=== PATIENT | female | born 1970 | race Caucasian/White ===

== ENCOUNTER → 2017-10-29 07:42 | Outpatient (CLI) | payer BC | END | disposition home or self-care (01) | LOC: D.MRI 07:42 | DX: G35 Multiple sclerosis (principal) ==

== ENCOUNTER 2020-04-11 07:05 | Observation (INO) | payer BC ==
[2020-04-08 17:17] LABS: BASOPHILS 0.3 % (0-2); HEMATOCRIT 44.9 % (36.0-48.0); IMMATURE GRANULOCYTES 0.1 % (0-5); LYMPHOCYTE ABS# 2.49 10x3/uL (1.18-3.74); LYMPHOCYTES 35.5 % (15-50); MCH 30.4 pg (26.0-34.0); MCHC 33.4 g/dL (31.0-37.0); MCV 91.1 fL (80.0-100.0); MONOCYTES 5.8 % (2-11); NEUTROPHIL ABS# 3.81 10x3/uL (1.56-6.13); NEUTROPHILS 54.3 % (40-80); PLATELET COUNT 233 10x3/uL (130-400); RBC 4.93 10x6/uL (4.00-5.40); RDW 12.6 % (11.5-14.5)
[2020-04-08 17:31] LABS: CALC OSMOLALITY 274 mosm/kg (275-300); CALCIUM 8.8 mg/dL (8.5-10.1); CARBON DIOXIDE 25.9 mmol/L (21.0-32.0); CHLORIDE - SERUM 103 mmol/L (98-107); CREATININE - SERUM 0.7 mg/dL (0.6-1.3); GLUCOSE 87 mg/dL (74-106); POTASSIUM - SERUM 4.4 mmol/L (3.5-5.1); SODIUM 138 mmol/L (136-145); UREA NITROGEN 12 mg/dL (7-18); eGFR NON AFRICAN AMERICAN > 90 mL/min (90-120)
[2020-04-08 20:00] LABS: UDS - AMPHET NEGATIVE QUAL (NEGATIVE); UDS - BARB NEGATIVE QUAL (NEGATIVE); UDS - BENZO NEGATIVE QUAL (NEGATIVE); UDS - COCAINE NEGATIVE QUAL (NEGATIVE); UDS - OPIATE NEGATIVE QUAL (NEGATIVE); UDS - PCP NEGATIVE QUAL (NEGATIVE); UDS - THC NEGATIVE QUAL (NEGATIVE)
[~2020-04-11] VITALS: Ht 160 cm; Wt 93.6 kg
[2020-04-11] VITALS (8 sets, daily range): BP systolic 116–166; BP diastolic 47–77; Ht 160 cm; Wt 93.6 kg
--- NOTE | ~2020-04-11 | OP ---
PATIENT NAME: RORY BAUER MEDICAL RECORD: [id number] :68 [facility] AD[facility] DATE: SURGEON: RODRIGUEZ ANNA MD DATE OF OPERATION: 04/11/2020 PREOPERATIVE DIAGNOSES: 1. Abnormal uterine bleeding. 2. Dyspareunia. POSTOPERATIVE DIAGNOSES: 1. Abnormal uterine bleeding. 2. Dyspareunia. PROCEDURE: 1. Diagnostic laparoscopy. 2. Bilateral salpingo-oophorectomy. 3. Subtotal hysterectomy. SURGEON: Rodriguez Anna MD LCSW: Blanca Mccall DO ANESTHESIOLOGIST: Giorgio Benitez MD ANESTHESIA: General. FINDINGS: Uterus was deviated left of the midline. There was fibrotic tissue in the parametrium of the left side extending to the anterior surface of the cervix involving the uterus. The right ovary was unremarkable with the exception of a small cyst. The left ovary was adhesed to the sidewall. The cul-de-sac was clear of any adhesions. There was no visual evidence of active endometriosis. What was seen of the abdominal anatomy was unremarkable. SPECIMEN REMOVED: Uterus without cervix, bilateral tubes and ovaries. SPECIMEN DISPOSITION: All specimens to pathology. ESTIMATED BLOOD LOSS: Minimal. FLUIDS: 1300 mL lactated Ringer's. URINE OUTPUT: 410 mL of clear urine. COMPLICATIONS: None. DRAIN: Hollis to gravity. INDICATIONS: The patient is a 50-year-old perimenopausal female with heavy irregular bleeding. The patient also reports longstanding dyspareunia. The patient is consented for diagnostic laparoscopy, total laparoscopic hysterectomy, bilateral salpingo-oophorectomy and any indicated procedure. DESCRIPTION OF PROCEDURE: After informed consent was assured, the patient was taken to the operating room where anesthetic was obtained. The patient was placed in the [facility] and prepped and draped. A uterine manipulator OPERATIVE REPORT [id number] RORY BAUER was placed. It was noted that the cervix was deviated to the left. The legs are positioned for the laparoscopic portion of this case and an incision was made at the umbilicus to accommodate a 5-mm trocar. This trocar was inserted. Pneumoperitoneum was developed. Uterus was visualized with deviation to the left of midline. Using the manipulator, the uterus was brought back to the midline and using a grasper from the right side, the right cornual region was steadied as a coagulation cutter was inserted from the left port and the tissue compressed, coagulated, and . The fibrotic tissue that was encountered was contained from the level of the fundus down to the pericervical region. There was a dense connective tissue between the bladder and the cervix as well. The dissection was carried to the midline for the bladder flap and posteriorly to the level of the internal os. Further dissection was withheld due to the dense adhesions and the ill-defined planes. Attention was now directed to the right side. The right infundibulopelvic ligament was compressed, coagulated, and . The dissection was carried out underneath the right ovary and tube. Across the right round ligament, an anterior leaf of the broad ligament was opened. Again, the anterior leaf of the broad ligament leads into a fibrotic tissue between bladder and anterior surface of the cervix. Dissection was continued on the left side and the vessels were compressed, coagulated, and what was believed to be the level of the internal os. After carefully reviewing the anatomy both anteriorly and on the left, decision was made to move forward with a subtotal hysterectomy. Beginning on the right and concluding on the left, the uterus was removed from its attachment to the cervix using a reverse cone technique. Uterus and ovaries are placed in the cul-de-sac. The endocervical canal was now cauterized. A 11-mm trocar rather was inserted in the midline 2 fingerbreadths above the symphysis and an Endobag was placed. Both uterus, tubes and ovaries are placed into this bag and it was pulled to the incision. Using a #10 blade, the incision was extended to allow removal of the uterus and ovaries and tube contained within the Endobag through a mini laparotomy. After removal of the uterus, tubes and ovaries, the fascial incision was closed and pneumoperitoneum reestablished. Visualization of the pelvis reveals adequate hemostasis. The pelvis was copiously irrigated and irrigant removed and again shows adequate hemostasis. Pneumoperitoneum was released and all skin sites were closed with a subcuticular stitch. Sponge, lap and needle counts were correct times 2 as the patient was awakened and went to the recovery room in stable condition. TRANSINT:[id number] Voice Confirmation ID: [id number] DOCUMENT ID: [id number] RODRIGUEZ ANNA MD CC: [id number] DICTATION DATE: 04/11/20 1337 TIPPLE REPAIRER: 04/11/20 1636 [facility] [address] [id number]
[~2020-04-11 07:05] MED LIST: BENICAR40 MG PO; COPAXONE INJ20 MG/ML SQ; NEXLETOL180 MG PO; PROBIOTIC1 EAC1 PO; SYNTHROID75 MCG PO
[2020-04-11 07:44] LABS: HCG URINE NEGATIVE (NEGATIVE)
--- NOTE | 2020-04-11 13:40 | NUR ---
[facility] TRACY SAENZ RN @[id number]
--- NOTE | 2020-04-11 13:55 | NUR ---
RECEIVED PT FROM PACU VIA BED ACCOMPANIED BY PROMOTIONAL ADVERTISING ASSISTANT. PT DROWSY, BUT AWAKE AND ORIENTED, CONVERSANT. IV INFUSING TO GRAVITY TO RIGHT FOREARM. IV PLACED TO IVP AT 125CC/HR. VSS. PER PACU NURSE AND PT, PT'S SKIN IS VERY SENITVE. RIGHT EYE NOTED TO BE SWOLEN FROM WHERE TAPE WAS PLACED OVER EYES DURING SURGERY. SKIN IRRITATION NOTED ON LEFT UPPER CHEST UNDER CLAVICLE WHERE EKG LEAD HAD BEEN PLACED. 3 ABDOMENAL LAPROSCOPIC INCISIONS NOTED--1 @ UMBILICUS- INTACT, SLIGHTLY RED. RED, IRRITATED SEMI-QAGAN TAYAGUNGIN NOTED ON RIGHT SIDE OF UMBILICUS. 2 LAPROSCOPIC INICISIONS NOTED IN RIGHT AND LEFT LOWER ABDOMEN. BOTH INCISIONS INTACT WITHOUT REDNESS, BUT SLIGHTLY BRUISED. LOW-TRANSVERSE SUPRAPUBIC INCISION NOTED; INTACT WITH DERMABOND. NO REDNESS OR BRUISING NOTED. CELESTIN CATHETER DRAINING LIGHT YELLOW CLEAR URINE TO GRAVITY; STAT LOCK PLACED TO RIGHT THIGH AND CELESTIN CATHETER SECURED TO LEG. SCD'S IN PLACE AND ATTACHED TO MACHINE. SCD'S CYCLING. PT. DENIES NEED FOR NAUSEA OR PAIN MEDS AT THIS TIME. ICE CHIPS AND WATER GIVEN. BED PLACED IN LOW POSITION; SIDE RAILS UP X2. PT ORIENTED TO ROOM. CALL LIGHT IN REACH BESIDE PT IN BED.
--- NOTE | 2020-04-11 15:00 | NUR ---
PT RESTING WITH EYES CLOSED; AWAKENS EASILY TO NAME. EDUCATED PT ABOUT INCENTIVE SPIROMETER. PT DEMONSTRATED USE WITH 3 BREATHS OF 1500-2000ML; GOOD EFFORT. INSTRUCTED PT TO DO THIS 3-4X AN HOUR. PT STATES UNDERSTANDNG. TORADOL GIVEN SLOW IVP PER ORDERS. PT DENIES NEED FOR OTHER PAIN MEDS AT THIS TIME.
--- NOTE | 2020-04-11 18:45 | NUR ---
IV SALINE LOCKED. CELESTIN D/C'D. PT REQUESTED TO GET UP TO BATHROOM. ASSISTED PT TO BATHROOM. PT UNABLE TO VOID. PT ASSISTED BACK TO BED. AT BEDSIDE.
--- NOTE | 2020-04-11 19:00 | NUR ---
REPORT GIVEN BY HENRIK BEDOLLA
--- NOTE | 2020-04-11 19:30 | NUR ---
IN PT ROOM TO INTRODUCE MYSELF. PT IS GETTING READY TO MOVE OVER TO THE L/D SIDE WHEN THE ROOM IS CLEAN. HER IS HERE AND IS PACKING UP HER THINGS TO MOVE.
--- NOTE | 2020-04-11 20:00 | NUR ---
ASSESSMENT COMPLETED. VS WNL. IV SL IN THE RIGHT FOREARM. CELESTIN CATHETER IS OUT BUT PT HAS NOT VOIDED YET. I GAVE HER THE TIME LIMIT WE USUALLY GO BY AND NOT TO WORRY ABOUT IT RIGHT NOW. SHE DID TRY TO GO BUT MAYBE 1CC WAS IN THE HAT. SKIN IS WARM AND DRY. INCISIONS LOOK GOOD WITH DURABON IN PLACE. THE THREE LAP INCISIONS LOOK GOOD WITHOUT ANY DRAINAGE. THE INCISION IN THE UMBILICUS HAS A RED, HALF CAMPA SHAPED AROUND IT. DR ANNA IS AWARE AND SAW THIS IN THE RECOVERY ROOM PER REPORT. SCD'S ARE IN PLACE. COBAN WRAPPING AROUND IV TUBING TO KEEP IN PLACE AND PT REQUESTED THIS B/C SHE SAYS SHE IS ALLERGIC TO THE TAPE. PT STATES AT THIS TIME SHE REALLY IS NOT HURTING MUCH.
--- NOTE | 2020-04-11 20:30 | NUR ---
PT MOVED TO ROOM 1274 BY WHEELCHAIR. PT WANTED TO WALK AND HELP CARRY HER THINGS BUT I TOLD HER SHE NEEDED TO RIDE B/C IT WAS PROBABLY A LONGER WALK THAN SHE THOUGHT. I ALSO TOLD HER THAT SHE COULD NOT PROFILE TRIMMER ANYTHING HEAVIER THAN A 5 POUND BAG OF SUGAR. SHE STATES NO ONE HAS GIVEN HER ANY KIND OF EDUCATION AND I ASSURED HER THAT BEFORE SHE WAS DISCHARGED HOME THAT ALL HER QUESTIONS WILL BE ANSWERED. I AM GOING TO TAKE HER A SHEET OF PAPER AND A PEN TO WRITE DOWN SPECIFIC QUESTIONS TO ASK NURSES AND DR. ANNA.
--- NOTE | 2020-04-11 21:52 | NUR ---
PT HAS C/0 PAIN AT HER INCISION SITE. SHE GOT TORADOL IV AND PERCOCET 10 MG PO. THE IV TUBING WAS FLUSHED WELL BEFORE AND AFTER INJUCTION OF MED. SHE HAS BEEN UP TO VOID TWICE TOTALING 600 MLS.
--- NOTE | 2020-04-11 22:30 | NUR ---
GAVE REPORT TO HENRIK CAMPBELL. SHE IS NOW TAKING OVER CARE OF THIS PT.
--- NOTE | 2020-04-11 22:40 | NUR ---
ASSISTED PT. UP TO BATHROOM AT THIS TIME. PT. VOIDS 200 MLS CLEAR YELLOW URINE INTO NUNS CAP.
--- NOTE | 2020-04-11 23:30 | NUR ---
RN TO BEDSIDE FOR ROUNDING AND INTRODUCTIONS. PT AA&O X 4. RATES PAIN 0/10. PT CHEERFUL. PT REQUEST ASSISTANCE IN REMOVING SCD WRAPS SO SHE MAY GET UP TO THE BR. PT OOB W/MINIMAL ASSISTANCE. TEACHING PROVIDED. PT ABLE TO VOID APPROX 100ML IN NUNS CAP. 1 NICKEL SIZE LIGHT RED BLOOD NOTED TO PERIPAD. PT AMBULATES BACK TO BED AND IN BED W/OUT ASSISTANCE. SCD WRAPS PLACED BACK ON PT BILATERALLY. REMAIN CONNECTED TO PUMP. PUMP REMAINS ON. PT DENIES NEEDS AT THIS TIME. BED LOW, SIDE RAILS UPX 2. CALL LIGHT AND PHONE AT PT'S SIDE.
[2020-04-12 00:21] VITALS: BP 97/51
--- NOTE | 2020-04-12 02:00 | NUR ---
ROUNDS MADE. PT RESTING QUIETLY IN HIGH APONTE'S. EYES CLOSED. RESP EVEN AND UNLABORED. NO DISTRESS NOTED. PT LEFT UNDISTURBED AT THIS TIME.
--- NOTE | 2020-04-12 03:35 | NUR ---
PT RINGS CALL LIGHT REQUESTING TO GET UP TO BR. RN TO BEDSIDE. PT ASSISTED W/SCD WRAPS. PT OOB W/OUT ASSISTANCE. AMBULATORY TO BR. ABLE TO VOID. RETURNS TO BED W/OUT ASSISTANCE. SCD WRAPS PLACED BACK ON PT'S LE'S BILATERALLY. REMAIN CONNECTED TO PUMP. PUMP IS ON AND FUNCTIONING. PAIN AND NEEDS ASSESSED. PT DENIES PAIN AT PRESENT. VITAL SIGNS OBTAINED. SCHEDULED IV TORADOL GIVEN. SEE EMAR. FRESH ICE SERVED PER REQUEST. PT DENIES FURTHER NEEDS. BED LOW, SIDE RAILS UP X 2. CALL LIGHT AN PHONE AT PT'S SIDE.
[2020-04-12 04:11] VITALS: BP 90/50
--- NOTE | 2020-04-12 06:14 | NUR ---
ROUNDS MADE. PT RESTING W/EYES CLOSED IN HIGH APONTE'S. RESP EVEN AND UNLABORED. NO DISTRESS NOTED. PT LEFT UNDISTURBED AT THIS TIME.
--- NOTE | 2020-04-12 06:47 | NUR ---
ROUNDS MADE. PT AWAKE VISITING W/A GUEST. DENIES NEEDS OR PAINS.
--- NOTE | 2020-04-12 07:13 | NUR ---
REPORT GIVEN TO ONCOMING DAYSHIFT.
--- NOTE | 2020-04-12 07:55 | NUR ---
DR. ANNA IN ROOM SPEAKING WITH PT REGARDING PLAN OF CARE.
--- NOTE | 2020-04-12 08:15 | NUR ---
TO PT'S ROOM, AM ASSESSMENT COMPLETED. SEE FLOWSHEET. PT DENIES HEAVY VAG BLEEDING. PT STATES SHE DOES NOT NEED PAIN MEDICATION AT THIS TIME. PT HAS LAP INCISIONS, WITH GLUE NOTED. DRESSING NOTED OVER LOW TRANSVERSE INCISION, C/D/I. ABDOMEN PALPATES SOFT. DARK RED/LIGHT PURPLE AREA NOTED UNDERNEATH UMBILICAL AREA, PT DENIES PAIN TO SITE, AREA INTACT. PT STATES "DR. ANNA SAID IT WAS FROM ONE OF THE INSTRUMENTS HE USED". PT HAS SCD'S ON, PT WANTS TO TAKE THEM OFF, "TO GIVE ME A LITTLE MORE FREEDOM TO WALK AROUND". SCDS REMOVED. PT HAS SALINE LOCK TO HER RIGHT FOREARM, WRAPPED IN COBAN. NO C/O PAIN TO IV SITE BY PT. NO SWELLING NOTED. PT HAS REGULAR BREAKFAST TRAY ON BEDSIDE TABLE. MEDICATION REVIEW COMPLETED WITH PT. PT DENIES WANTING PAIN MEDICATION AT THIS TIME. DENIES SOB, DIFFICULTY BREATHING, DENIES N/V, DENIES DIZZINESS OR CHEST PAIN. SRUP X2, CALL LIGHT AND PHONE WITHIN REACH.
[2020-04-12 08:20] VITALS: BP 119/59
--- NOTE | 2020-04-12 10:00 | NUR ---
PT AMBULATORY IN HALLWAYS, DENIES NEEDS AT THIS TIME.
--- NOTE | 2020-04-12 10:15 | NUR ---
PT OFF UNIT IN STABLE CONDITION, BY WHEELCHAIR, TO PRIVATE VEHICLE, WITH SIG OTHER DRIVING. PT DENIES QUESTIONS OR NEEDS.
--- NOTE | 2020-04-12 10:20 | NUR ---
PT AMBULATORY BACK TO ROOM. STATES "YOU ASKED ME EARLIER, AND NOW I HAVE PASSED SOME GAS". PT REPORTS HER CAN'T BE HERE UNTIL 3 PM TODAY WHEN HE GETS OFF WORK, AND HER SISTER DOESN'T GET OFF UNTIL 7, THEY ARE THE ONLY TWO THAT CAN TAKE HER HOME. PER LISA, BUFFER MACHINE OF THE UNIT, PT OFFERED A CAB RIDE HOME, PT STATES SHE WOULD RATHER JUST WAIT ON HER TO COME AND PICK HER UP. PT BACK TO BED. SRUP X2, CALL LIGHT AND PHONE WITHIN REACH.
--- NOTE | 2020-04-12 12:00 | NUR ---
DIETARY SERVES REGULAR LUNCH TRAY, PT SERVED CRANBERRY.
--- NOTE | 2020-04-12 15:15 | NUR ---
SALINE LOCK DC'D WITH CATHELON INTACT. PRESSURE BANDAGE TO SITE. PT AMBULATORY IN HALLS AT THIS TIME.
[2020-04-12] MEDS ORDERED: MOBIC7.5 MG PO (15:23)
[2020-04-12] MEDS ORDERED: PERCOCET 7.5/321 TAB PO (15:24)
[2020-04-12] MEDS ORDERED: NEURONTIN 300300 MG PO (15:24)
--- NOTE | 2020-04-12 15:35 | NUR ---
DISCHARGE INSTRUCTIONS GIVEN TO PT. PT VERBALIZES UNDERSTANDING OF ALL INSTRUCTIONS. COPIES GIVEN TO PT. RX FOR MOBIC, NEURONTIN, AND PERCOCET GIVEN TO PT.
--- NOTE | 2020-04-12 15:46 | NUR ---
PT C/O INCISIONAL PAIN OF "3" ON 0-10 PAIN SCALE. PERCOCET 5/325 GIVEN PO ORDERED. PT INSTRUCTED ON MED. VERBALIZES UNDERSTANDING.
--- NOTE | 2020-04-12 15:50 | NUR ---
PT READY FOR DISCHARGE. DISCHARGED IN STABLE CONDITION VIA WHEELCHAIR TO PRIVATE VEHICLE. PT JOSHUA WELL.
== END 2020-04-12 15:50 | disposition home or self-care (01) ==
LOC: D.OPS 07:05 → D.WS 13:23 → D.OPS 22:14 → D.LD 22:18 → OBSVTIME 22:19 → D.SDCHOLD 04-12 09:15 → D.LD 04-12 09:18
PROVIDERS: ADMIT Obstetrics & Gynecology; ATTEND Obstetrics & Gynecology
DX: N93.9 Abnormal uterine and vaginal bleeding, unspecified (principal); N94.10 Unspecified dyspareunia; I10 Essential (primary) hypertension; K21.9 Gastro-esophageal reflux disease without esophagitis; R10.2 Pelvic and perineal pain

== ENCOUNTER → 2020-05-15 13:51 | Outpatient (CLI) | payer BC ==
[2020-04-11 14:33] VITALS: BMI 36.5
[~2020-05-15 13:51] MED LIST changes: +MOBIC7.5 MG PO; +NEURONTIN 300300 MG PO; +PERCOCET 7.5/321 TAB PO
== END | disposition home or self-care (01) ==
LOC: D.CT 13:30
PROVIDERS: ATTEND Obstetrics & Gynecology
DX: R10.9 Unspecified abdominal pain (principal)